=== PATIENT | male | born 1955 | race African-American/Black ===

== ENCOUNTER 2019-03-15 01:33 | Emergency (ER) | payer MEDICARE, OTHER ==
[~2019-03-15] VITALS: Ht 175.3 cm; Wt 72.6 kg
--- NOTE | 2019-03-15 02:34 | PHYS DOC ---
Past Medical History Past Medical History: Depression, Other Additional Past Medical Histor: Stage 4 Prostate Cancer Past Surgical History: Other Additional Past Surgical Histo: Left shoulder, Power Port placement Alcohol Use: None Drug Use: None Adult General Chief Complaint Chief Complaint: ABDOMINAL PAIN HPI HPI Patient is a 63 year old M who presents with back pain. The pain He reports vomiting, burning with urination, incontinence, fever, chills, chest pain, and shortness of breath. He has known stage 4 prostate cancer. Per the son he was walking over the weekend but now has become progressively weak with increasing back pain. He usually receives medical care at the [facility] in [place], [place]. His last CT scan was two months ago. No new trauma patient is urinating on himself which appears to be a new problem he is very constipated he has not had stool he is weak he is unable to walk now over the last day or so according to the son he also ran out of his morphine today he still has oxycodone and has been taking Review of Systems Review of Systems Constitutional: Reports fever or chills [] Eyes: Denies change in visual acuity, redness, or eye pain [] HENT: Denies nasal congestion or sore throat [] Respiratory: Reports cough or shortness of breath [] Cardiovascular: No additional information not addressed in HPI [] GI: Reports abdominal pain, nausea, vomiting, bloody stools or diarrhea [] : Denies dysuria or hematuria [] Musculoskeletal: Reports back pain or joint pain [] Integument: Denies rash or skin lesions [] Neurologic: Reports lower extremity weakness [] Endocrine: Denies polyuria or polydipsia [] All other systems were reviewed and found to be within normal limits, except as documented in this note. Current Medications Current Medications Current Medications Medications (Trade) Dose Ordered Sig/Corrine Start Time Stop Time Status Last Admin Dose Admin Dexamethasone Sodium Phosphate (Decadron) 10 mg 1X ONCE 03/15/19 06:45 03/15/19 06:46 DC Hydromorphone HCl (Dilaudid) 1 mg 1X ONCE 03/15/19 06:45 03/15/19 06:46 DC Morphine Sulfate (Morphine Sulfate) 6 mg 1X ONCE 03/15/19 02:45 03/15/19 02:46 DC 03/15/19 02:44 6 MG Sodium Chloride 1,000 ml @ 1,000 mls/hr 1X ONCE 03/15/19 02:45 03/15/19 03:44 DC 03/15/19 02:44 1,000 MLS/HR Allergies Allergies Allergies Coded Allergies Type Severity Reaction Last Updated Verified No Known Drug Allergies 03/15/19 No Physical Exam Physical Exam Constitutional: Well developed, well nourished, no acute distress, non-toxic appearance. [] HENT: Normocephalic, atraumatic, bilateral external ears normal, oropharynx moist, no oral exudates, nose normal. [] Eyes: PERRLA, EOMI, conjunctiva normal, no discharge. [] Neck: Normal range of motion, no tenderness, supple, no stridor. [] Cardiovascular:Heart rate regular rhythm, no murmur [] Lungs & Thorax: Coarse breath sounds at bilateral lung bases Abdomen: Bowel sounds normal, soft, mild tenderness, no masses, no pulsatile ma sses. [] Skin: Mottled pigment on right flank. [] Back: Tenderness to palpation T8-T10 area and also L4-5 area to Extremities: 5 out of 5 EHL ankle plantar and dorsiflexion 4-5 quads extension bilaterally patient is decreased rectal tone Neurologic: Alert and oriented X 3. []Otherwise see above Psychologic: Affect normal, judgement normal, mood anxious Current Patient Data Vital Signs Vital Signs Date Time Temp Pulse Resp B/P (MAP) Pulse Ox O2 Delivery O2 Flow Rate FiO2 03/15/19 06:25 98.5 92 17 135/80 98.5 03/15/19 05:38 Room Air 03/15/19 02:44 99 Lab Values Laboratory Tests Test 03/15/19 01:50 03/15/19 02:50 03/15/19 04:00 White Blood Count 7.9 x10^3/uL (4.0-11.0) Red Blood Count 1.72 x10^6/uL (4.30-5.70) L Hemoglobin 5.5 g/dL (13.0-17.5) *L Hematocrit 16.8 % (39.0-53.0) *L Mean Corpuscular Volume 97 fL (79-100) Mean Corpuscular Hemoglobin 32 pg (25-35) Mean Corpuscular Hemoglobin Concent 33 g/dL (31-37) Red Cell Distribution Width 16.6 % (11.5-14.5) H Platelet Count 203 x10^3/uL (140-400) Neutrophils (%) (Auto) 58 % (31-73) Lymphocytes (%) (Auto) 28 % (24-48) Monocytes (%) (Auto) 14 % (0-9) H Eosinophils (%) (Auto) 0 % (0-3) Basophils (%) (Auto) 0 % (0-3) Neutrophils # (Auto) 4.6 x10^3uL (1.8-7.7) Lymphocytes # (Auto) 2.2 x10^3/uL (1.0-4.8) Monocytes # (Auto) 1.1 x10^3/uL (0.0-1.1) Eosinophils # (Auto) 0.0 x10^3/uL (0.0-0.7) Basophils # (Auto) 0.0 x10^3/uL (0.0-0.2) Prothrombin Time > 120.0 SEC (11.7-14.0) *H 15.1 SEC (11.7-14.0) H Prothrombin Time INR > 15.0 (0.8-1.1) *H 1.2 (0.8-1.1) H Sodium Level 139 mmol/L (136-145) Potassium Level 3.8 mmol/L (3.5-5.1) Chloride Level 101 mmol/L (98-107) Carbon Dioxide Level 25 mmol/L (21-32) Anion Gap 13 (6-14) Blood Urea Nitrogen 29 mg/dL (8-26) H Creatinine 1.3 mg/dL (0.7-1.3) Estimated GFR (Cockcroft-Gault) 67.2 BUN/Creatinine Ratio 22 (6-20) H Glucose Level 112 mg/dL (70-99) H Calcium Level 11.7 mg/dL (8.5-10.1) H Total Bilirubin 0.9 mg/dL (0.2-1.0) Aspartate Amino Transferase (AST) 58 U/L (15-37) H Alanine Aminotransferase (ALT) 22 U/L (16-63) Alkaline Phosphatase 263 U/L (46-116) H Troponin I Quantitative < 0.017 ng/mL (0.000-0.055) Total Protein 7.2 g/dL (6.4-8.2) Albumin 3.0 g/dL (3.4-5.0) L Albumin/Globulin Ratio 0.7 (1.0-1.7) L Lipase 68 U/L (73-393) L Urine Collection Type Unknown Urine Color Yellow Urine Clarity Clear Urine pH 7.0 Urine Specific [place] 1.020 Urine Protein Negative mg/dL (NEG-TRACE) Urine Glucose (UA) Negative mg/dL (NEG) Urine Ketones (Stick) Negative mg/dL (NEG) Urine Blood Negative (NEG) Urine Nitrite Negative (NEG) Urine Bilirubin Negative (NEG) Urine Urobilinogen Dipstick >=8.0 mg/dL (0.2 mg/dL) Urine Leukocyte Esterase Negative (NEG) Urine RBC 0 /HPF (0-2) Urine WBC Occ /HPF (0-4) Urine Squamous Epithelial Cells Occ /LPF Urine Amorphous Sediment Present /HPF Urine Bacteria 0 /HPF (0-FEW) Urine Hyaline Casts Few /HPF Urine Granular Casts Occasional /HPF Urine Mucus Mod /LPF Laboratory Tests 03/15/19 01:50 Laboratory Tests 03/15/19 01:50 EKG EKG [] Radiology/Procedures Radiology/Procedures [] Impressions: PQRS Compliance Statement: One or more of the following individualized dose reduction techniques were utilized for this examination: 1. Automated exposure control 2. Adjustment of the mA and/or kV according to patient size 3. Use of iterative reconstruction technique CT THORACIC SPINE WO CONTRAST, CT LUMBAR SPINE RECONSTRUCTION, CT ABDOMEN PELVIS WO CONTRAST Clinical Indication: Back pain, prostate cancer. Comparison: None. TECHNIQUE: Helical CT imaging of the thoracic spine is performed without IV contrast. Helical CT imaging of the abdomen and pelvis is performed without IV contrast. Using source images, small [id number] reconstructions of the lumbar spine performed using bone algorithm. Findings: There are diffuse mixed osteolytic and blastic bone metastases. There is pathologic fracture of the T4 vertebral body with buckling of the posterior cortex. There is acute pathologic fracture of the T10 vertebral body. There is a vertically oriented fracture line on the right. There is right chest Port-A-Cath. Coronary artery disease. Cardiac size normal, no pericardial effusion. Respiratory motion artifact in the lungs. Moderate retained secretions or mucous in the distal trachea on the right. Mild atelectasis or scarring bilaterally. There is no acute pathologic fracture in the lumbar spine. Vertebral body height and alignment are maintained. Mild degenerative endplate spurring. Cardiac size normal. Liver, gallbladder, spleen, pancreas, and right adrenal gland are normal. Moderate atherosclerotic calcification of the abdominal aorta and iliac arteries, no aneurysm. Left adrenal gland hyperplasia. There is no hydronephrosis. Stomach unremarkable. No dilated small bowel. Moderate presacral edema. Moderate colon stool volume. No colon wall thickening is identified. The appendix is normal. No abdominal adenopathy or free fluid. Urinary bladder is normal. Prostate mildly enlarged. No pelvic free fluid. Question nondisplaced pathologic fracture of the left ischial tuberosity. IMPRESSION: 1. There are diffuse mixed lytic and sclerotic bone metastases. 2. There are acute pathologic fractures of the T4 and T10 vertebral bodies and the left ischial tuberosity. 3. Moderate colon stool volume suggests constipation. 4. There is moderate presacral edema. 5. Prostate mildly enlarged. Electronically signed by: Jeronimo Velazquez MD (03/15/2019 3:40 AM) [facility] DICTATED and SIGNED BY: JERONIMO VELAZQUEZ MD DATE: 03/15/19 0340 PQRS Compliance Statement: One or more of the following individualized dose reduction techniques were utilized for this examination: 1. Automated exposure control 2. Adjustment of the mA and/or kV according to patient size 3. Use of iterative reconstruction technique CT THORACIC SPINE WO CONTRAST, CT LUMBAR SPINE RECONSTRUCTION, CT ABDOMEN PELVIS WO CONTRAST Clinical Indication: Back pain, prostate cancer. Comparison: None. TECHNIQUE: Helical CT imaging of the thoracic spine is performed without IV contrast. Helical CT imaging of the abdomen and pelvis is performed without IV contrast. Using source images, small [id number] reconstructions of the lumbar spine performed using bone algorithm. Findings: There are diffuse mixed osteolytic and blastic bone metastases. There is pathologic fracture of the T4 vertebral body with buckling of the posterior cortex. There is acute pathologic fracture of the T10 vertebral body. There is a vertically oriented fracture line on the right. There is right chest Port-A-Cath. Coronary artery disease. Cardiac size normal, no pericardial effusion. Respiratory motion artifact in the lungs. Moderate retained secretions or mucous in the distal trachea on the right. Mild atelectasis or scarring bilaterally. There is no acute pathologic fracture in the lumbar spine. Vertebral body height and alignment are maintained. Mild degenerative endplate spurring. Cardiac size normal. Liver, gallbladder, spleen, pancreas, and right adrenal gland are normal. Moderate atherosclerotic calcification of the abdominal aorta and iliac arteries, no aneurysm. Left adrenal gland hyperplasia. There is no hydronephrosis. Stomach unremarkable. No dilated small bowel. Moderate presacral edema. Moderate colon stool volume. No colon wall thickening is identified. The appendix is normal. No abdominal adenopathy or free fluid. Urinary bladder is normal. Prostate mildly enlarged. No pelvic free fluid. Question nondisplaced pathologic fracture of the left ischial tuberosity. IMPRESSION: 1. There are diffuse mixed lytic and sclerotic bone metastases. 2. There are acute pathologic fractures of the T4 and T10 vertebral bodies and the left ischial tuberosity. 3. Moderate colon stool volume suggests constipation. 4. There is moderate presacral edema. 5. Prostate mildly enlarged. Electronically signed by: Jeronimo Velazquez MD (03/15/2019 3:40 AM) [facility] DICTATED and SIGNED BY: JERONIMO VELAZQUEZ MD DATE: 03/15/19 034 PQRS Compliance Statement: One or more of the following individualized dose reduction techniques were utilized for this examination: 1. Automated exposure control 2. Adjustment of the mA and/or kV according to patient size 3. Use of iterative reconstruction technique CT THORACIC SPINE WO CONTRAST, CT LUMBAR SPINE RECONSTRUCTION, CT ABDOMEN PELVIS WO CONTRAST Clinical Indication: Back pain, prostate cancer. Comparison: None. TECHNIQUE: Helical CT imaging of the thoracic spine is performed without IV contrast. Helical CT imaging of the abdomen and pelvis is performed without IV contrast. Using source images, small [id number] reconstructions of the lumbar spine performed using bone algorithm. Findings: There are diffuse mixed osteolytic and blastic bone metastases. There is pathologic fracture of the T4 vertebral body with buckling of the posterior cortex. There is acute pathologic fracture of the T10 vertebral body. There is a vertically oriented fracture line on the right. There is right chest Port-A-Cath. Coronary artery disease. Cardiac size normal, no pericardial effusion. Respiratory motion artifact in the lungs. Moderate retained secretions or mucous in the distal trachea on the right. Mild atelectasis or scarring bilaterally. There is no acute pathologic fracture in the lumbar spine. Vertebral body height and alignment are maintained. Mild degenerative endplate spurring. Cardiac size normal. Liver, gallbladder, spleen, pancreas, and right adrenal gland are normal. Moderate atherosclerotic calcification of the abdominal aorta and iliac arteries, no aneurysm. Left adrenal gland hyperplasia. There is no hydronephrosis. Stomach unremarkable. No dilated small bowel. Moderate presacral edema. Moderate colon stool volume. No colon wall thickening is identified. The appendix is normal. No abdominal adenopathy or free fluid. Urinary bladder is normal. Prostate mildly enlarged. No pelvic free fluid. Question nondisplaced pathologic fracture of the left ischial tuberosity. IMPRESSION: 1. There are diffuse mixed lytic and sclerotic bone metastases. 2. There are acute pathologic fractures of the T4 and T10 vertebral bodies and the left ischial tuberosity. 3. Moderate colon stool volume suggests constipation. 4. There is moderate presacral edema. 5. Prostate mildly enlarged. Electronically signed by: Jeronimo Velazquez MD (03/15/2019 3:40 AM) [facility] DICTATED and SIGNED BY: JERONIMO VELAZQUEZ MD DATE: 03/15/19339 Course & Med Decision Making Course & Med Decision Making Pertinent Labs and Imaging studies reviewed. (See chart for details) []63-year-old male known prostate cancer stage IV present in with acute on chronic back pain as well as some new neurologic concerning features of urinary incontinence and some weakness in the lower extremities. Concerning for cord problem. CT scan did show new T4 and T10 acute fracture \ I spoke with multiple providers at this facility including [facility] computer consultant for the neurosurgery service Dr. Gunn who is the on-call neurosurgery provider is out of town from March 14 to March 21 this was sent over an email from nursing leadership WE FAXED this email over to [facility] at the request of Dr. Jade from orthopedic spine surgery. Dr. Jade had several questions about this case first of all he questioned in detail our current on-call neurosurgical service he requested a paper copy of the documentation of lack of neurosurgery coverage. We did fax this over as noted above. He requested clarification and specific neurologic detailed examination. This resulted in a delay in the patient's care however eventually I did complete a rectal examination I did speak with our nursing press room supervisor actually spoke with Oksana Dupont the nursing C and O who did confirm the absence of neurosurgical coverage. Specifically Dr. Murray only has courtesy privileges and is not required to take call therefore there is no neurosurgical call coverage at this facility. I did call back Dr. Jade and gave provide in detail this specific information and ultimately Dr. Mandeep RAZO from accepted the patient to the medical service. Requested IV Decadron 10 mg 1 which we did give. In addition we get a unit of packed red blood cells in the emergency room here at [place] and the patient will be transferred over to and stable but guarded cONDITION. Dragon Disclaimer Dragon Disclaimer This electronic medical record was generated, in whole or in part, using a voice recognition dictation system. Departure Departure Impression: Primary Impression: Compression fracture Disposition: 02 TRANSFER [facility] Condition: STABLE THADDEUS MATTHEWS MD March 15, 2019 02:34
[2019-03-15 02:45] LABS: BASO % 0 % (0-3); EOS % 0 % (0-3); LYMPH # 2.2 x10^3/uL (1.0-4.8); LYMPH % 28 % (24-48); MEAN CORPUSCULAR HEMOGLOBIN 32 pg (25-35); MEAN CORPUSCULAR HGB CONC 33 g/dL (31-37); MEAN CORPUSCULAR VOLUME 97 fL (79-100); MONO # 1.1 x10^3/uL (0.0-1.1); MONO % 14 % (0-9); NEUT # 4.6 x10^3uL (1.8-7.7); NEUT % 58 % (31-73); PLATELET COUNT 203 x10^3/uL (140-400); RED BLOOD COUNT 1.72 x10^6/uL (4.30-5.70); RED CELL DISTRIBUTION WIDTH 16.6 % (11.5-14.5); WHITE BLOOD COUNT 7.9 x10^3/uL (4.0-11.0)
[2019-03-15] MEDS ORDERED: IV NORMAL SALINE 1000ML BAG 1,000 ML IV ONE (02:45)
[2019-03-15] MEDS ORDERED: MORPHINE SULFATE 10 MG/ML VIAL. IV ONE (02:45)
[2019-03-15 02:48] LABS: HEMATOCRIT 16.8 % (39.0-53.0); HEMOGLOBIN 5.5 g/dL (13.0-17.5)
[2019-03-15 03:15] LABS: CALCIUM 11.7 mg/dL (8.5-10.1); CREATININE 1.3 mg/dL (0.7-1.3); GFR 67.2; POTASSIUM 3.8 mmol/L (3.5-5.1)
[2019-03-15 03:16] LABS: BILIRUBIN,URINE NEGATIVE (NEG); CLARITY,URINE CLEAR; COLOR,URINE YELLOW; NITRITE,URINE NEGATIVE (NEG); PROTEIN,URINE NEGATIVE (NEG-TRACE); UROBILINOGEN,URINE >=8.0 mg/dL (0.2 mg/dL)
[2019-03-15 03:19] LABS: PROTHROMBIN TIME PATIENT > 120.0 SEC (11.7-14.0)
[2019-03-15 03:21] LABS: ALBUMIN/GLOBULIN RATIO 0.7 (1.0-1.7); TOTAL BILIRUBIN 0.9 mg/dL (0.2-1.0); TOTAL PROTEIN 7.2 g/dL (6.4-8.2)
[2019-03-15 03:27] LABS: BACTERIA,URINE 0 /HPF (0-FEW); RBC,URINE 0 /HPF (0-2); WBC,URINE OCC /HPF (0-4)
[2019-03-15 03:28] LABS: AMORPHOUS SEDIMENT,UR PRESENT /HPF; GRANULAR CASTS,URINE OCCASIONAL /HPF; HYALINE CASTS, URINE FEW /HPF; SQUAMOUS EPITHELIAL CELL,UR OCC /LPF
--- NOTE | 2019-03-15 03:43 | RAD ---
PQRS Compliance Statement: One or more of the following individualized dose reduction techniques were utilized for this examination: 1. Automated exposure control 2. Adjustment of the mA and/or kV according to patient size 3. Use of iterative reconstruction technique CT THORACIC SPINE WO CONTRAST, CT LUMBAR SPINE RECONSTRUCTION, CT ABDOMEN PELVIS WO CONTRAST Clinical Indication: Back pain, prostate cancer. Comparison: None. TECHNIQUE: Helical CT imaging of the thoracic spine is performed without IV contrast. Helical CT imaging of the abdomen and pelvis is performed without IV contrast. Using source images, small [id number] reconstructions of the lumbar spine performed using bone algorithm. Findings: There are diffuse mixed osteolytic and blastic bone metastases. There is pathologic fracture of the T4 vertebral body with buckling of the posterior cortex. There is acute pathologic fracture of the T10 vertebral body. There is a vertically oriented fracture line on the right. There is right chest Port-A-Cath. Coronary artery disease. Cardiac size normal, no pericardial effusion. Respiratory motion artifact in the lungs. Moderate retained secretions or mucous in the distal trachea on the right. Mild atelectasis or scarring bilaterally. There is no acute pathologic fracture in the lumbar spine. Vertebral body height and alignment are maintained. Mild degenerative endplate spurring. Cardiac size normal. Liver, gallbladder, spleen, pancreas, and right adrenal gland are normal. Moderate atherosclerotic calcification of the abdominal aorta and iliac arteries, no aneurysm. Left adrenal gland hyperplasia. There is no hydronephrosis. Stomach unremarkable. No dilated small bowel. Moderate presacral edema. Moderate colon stool volume. No colon wall thickening is identified. The appendix is normal. No abdominal adenopathy or free fluid. Urinary bladder is normal. Prostate mildly enlarged. No pelvic free fluid. Question nondisplaced pathologic fracture of the left ischial tuberosity. IMPRESSION: 1. There are diffuse mixed lytic and sclerotic bone metastases. 2. There are acute pathologic fractures of the T4 and T10 vertebral bodies and the left ischial tuberosity. 3. Moderate colon stool volume suggests constipation. 4. There is moderate presacral edema. 5. Prostate mildly enlarged. Electronically signed by: Jeronimo Velazquez MD (03/15/2019 3:40 AM) [facility]
[2019-03-15 04:37] LABS: PROTHROMBIN TIME PATIENT 15.1 SEC (11.7-14.0)
[2019-03-15] MEDS ORDERED: HYDROmorphone 2 MG/ML VIAL IV ONE ×2 (05:00→06:45)
[2019-03-15 06:25] VITALS: BP 135/80
[2019-03-15] MEDS ORDERED: DEXAMETHASONE SOD PHOS 4 MG/ML VIAL IV ONE (06:45)
[2019-03-15 07:30] VITALS: BP 155/88
[2019-03-15 07:31] VITALS: BP 155/88
--- NOTE | 2019-03-15 08:09 | RAD ---
PORTABLE CHEST 1V History: Weakness Comparison: None. Findings: Single view of the chest is submitted. There is right internal jugular port catheter with the tip in region of superior aspect of the right atrium. There is a tortuous, possibly ectatic thoracic aorta. There is no dependent pleural fluid, pneumothorax, lobar consolidation. There is some opacity of the lateral superior left hemithorax which may be pleural bleed based, also some opacity of the mid right hemithorax, uncertain if component of pleural plaque. Cardiac silhouette is within normal limits given technique. There is degenerative change of the shoulders bilaterally. Impression: 1. There is likely some pleural-based opacity bilaterally which may be a component of pleural plaque, mild infiltrate not excluded, better evaluated by CT. Electronically signed by: Clemente Lincoln MD (03/15/2019 8:06 AM) [id number]
== END 2019-03-15 07:50 | disposition short-term general hospital (02) ==
LOC: ER 01:33
DX: M48.54XA Collapsed vertebra, not elsewhere classified, thoracic region, initial encounter for fracture (principal); N40.0 Benign prostatic hyperplasia without lower urinary tract symptoms; C61 Malignant neoplasm of prostate; R11.2 Nausea with vomiting, unspecified; R07.89 Other chest pain; R06.02 Shortness of breath; R30.0 Dysuria; R50.9 Fever, unspecified; M54.5 Low back pain
CPT/HCPCS: 36415; 36430; 71045; 72128; 74176; 80053; 81001; 83690; 84484; 85025; 85610; 86850; 86900; 86901; 86920; 96361; 96374; 96375; 96376; 99285; J1100; J1170; J2270; J7030; P9016